=== PATIENT | female | born 1970 | race Caucasian/White ===

== ENCOUNTER 2016-03-16 10:48 | Day surgery (SDC) | payer OTHER ==
[~2016-03-16] VITALS: Ht 170.2 cm; Wt 136.5 kg
[~2016-03-16 10:48] MED LIST: BENADRYL50 MG PO; BYETTA10 MCG/0.0 SC; CELEBREX200 MG PO; CYMBALTA30 MG PO; CYMBALTA60 MG PO; DULOXETINE HCL30 MG PO; FENTANYL1 EAC4; FLONASE16 G1 BOTH NARES; LABETALOL HCL100 MG PO; LANTUS 3 M100 UNITS1; LANTUS 3 M100 UNITS1 SC; LYRICA150 MG PO; METFORMIN HCL1000 MG PO; MONTELUKAST SOD10 MG PO; NAPROXEN500 MG PO; NOVOLOG 10100 UNITS/ SC; NOVOLOG PE100 UNITS/ SC; OMEPRAZOLE20 MG; OPANA ER10 MG PO; PERCOCET 7.51 TABLET PO; PREDNISONE20 MG PO; PRILOSEC20 MG PO; PROAIR HFA8.5 GM PO; SYMBICORT60 INHALAT PO; TOUJEO SOL300 UNIT/1 SC; XOPENEX HF200 INHALA IH; ZANTAC150 MG PO; ZOCOR40 MG PO; ZYRTEC10 M3 PO
[2016-03-16 11:37] LABS: POINT-OF-CARE METER ID UU14174212
[2016-03-16 11:45] VITALS: BP 148/85
[2016-03-16 17:00] VITALS: BP 116/57
[2016-03-16 18:40] VITALS: BP 129/67
== END 2016-03-16 18:45 | disposition home or self-care (01) ==
LOC: SDC 10:48
PROVIDERS: Orthopaedic Surgery Sports Medicine
DX: M25.812 Other specified joint disorders, left shoulder (principal); M19.012 Primary osteoarthritis, left shoulder; E11.9 Type 2 diabetes mellitus without complications; G47.30 Sleep apnea, unspecified; I10 Essential (primary) hypertension; F32.9 Major depressive disorder, single episode, unspecified; J45.909 Unspecified asthma, uncomplicated; E78.5 Hyperlipidemia, unspecified; M48.00 Spinal stenosis, site unspecified; Z98.1 Arthrodesis status; Z82.49 Family history of ischemic heart disease and other diseases of the circulatory system; Z83.3 Family history of diabetes mellitus; Z84.1 Family history of disorders of kidney and ureter; Z80.9 Family history of malignant neoplasm, unspecified; Z88.8 Allergy status to other drugs, medicaments and biological substances
CPT/HCPCS: 82948; J0171; J0330; J0690; J1100; J1170; J2250; J2405; J2795; J3010; Q0169